=== PATIENT | female | born 1990 | race American Indian/Alaskan Native ===

== ENCOUNTER 2021-07-09 15:26 | Emergency (ER) | payer SELFPAY ==
--- NOTE | 2021-07-09 16:31 | Emergency Department Report ---
ED Female HPI - General Chief complaint: Vaginal Bleeding Stated complaint: WITH LIGHT BLEEDING Source: patient Mode of arrival: Ambulatory Limitations: No Limitations - History of Present Illness Initial comments: 30-year-old female presented to the ED with complaint of vaginal bleeding. Patient states that she is 8-week had a previous test done at the [place] 2 Para1 . Patient denies any abdominal pain. Patient denies any nausea vomiting or fever chills. Patient's last menstrual cycle was 05/06/2021. No acute distress noted no ill appearance noted. MD Complaint: vaginal bleeding -: This morning Severity scale (0 -10): 0 Are you Now?: Yes Last Menstrual Period: 05/06/21 EDC: 02/10/22 Associated Symptoms: denies other symptoms - Related Data Sexually active: Yes : 2 Para: 1 A: 0 Previous Rx's Medication Instructions Recorded Last Taken Type Acetaminophen/Codeine [Tylenol 1 tab PO Q6H PRN 3 Days #12 tab 07/09/21 Unknown Rx /Codeine # 3 tab] Allergies Allergy/AdvReac Type Severity Reaction Status Date / Time No Known Allergies Allergy Unverified 07/09/21 15:55 ED Review of Systems ROS: Stated complaint: WITH LIGHT BLEEDING Other details as noted in HPI Constitutional: denies: chills, fever Eyes: denies: eye pain, eye discharge, vision change ENT: denies: ear pain, throat pain Respiratory: denies: cough, shortness of breath, wheezing Cardiovascular: denies: chest pain, palpitations Endocrine: no symptoms reported Gastrointestinal: denies: abdominal pain, nausea, diarrhea Genitourinary: denies: urgency, dysuria, discharge Musculoskeletal: denies: back pain, joint swelling, arthralgia Skin: denies: rash, lesions Neurological: denies: headache, weakness, paresthesias Psychiatric: denies: anxiety, depression Hematological/Lymphatic: denies: easy bleeding, easy bruising ED Past Medical Hx - Medications Home Medications: Home Medications Medication Instructions Recorded Confirmed Last Taken Type Acetaminophen/Codeine [Tylenol 1 tab PO Q6H PRN 3 Days #12 tab 07/09/21 Unknown Rx /Codeine # 3 tab] ED Physical Exam - General Limitations: No Limitations General appearance: alert, in no apparent distress - Head Head exam: Present: atraumatic, normocephalic - Eye Eye exam: Present: normal appearance - ENT ENT exam: Present: mucous membranes moist - Neck Neck exam: Present: normal inspection - Respiratory Respiratory exam: Present: normal lung sounds bilaterally. Absent: respiratory distress - Cardiovascular Cardiovascular Exam: Present: regular rate, normal rhythm. Absent: systolic murmur, diastolic murmur, rubs, gallop - GI/Abdominal GI/Abdominal exam: Present: soft, normal bowel sounds - Speculum exam: Present: vaginal bleeding - Extremities Exam Extremities exam: Present: normal inspection - Back Exam Back exam: Present: normal inspection - Neurological Exam Neurological exam: Present: alert, oriented X3 - Psychiatric Psychiatric exam: Present: normal affect, normal mood - Skin Skin exam: Present: warm, dry, intact, normal color. Absent: rash ED Course Vital Signs 07/09/21 17:49 Temperature 100.0 F H Pulse Rate 94 H Respiratory 16 Rate Blood Pressure 125/74 [Right] O2 Sat by Pulse 99 Oximetry ED Medical Decision Making - Lab Data Result diagrams: 07/09/21 16:26 07/09/21 16:26 - Radiology Data [facility] [address] [place] [address] Ultrasound Report Signed Patient: DUC COLVIN MR#: [id number] : 1990 Acct:[id number] Age/Sex: 30 / F ADM Date: 07/09/21 Loc: ED Attending Dr: Ordering Physician: EMILIANO ROBERTS Date of Service: 07/09/21 Procedure(s): US OB transvaginal Accession Number(s): [id number] cc: EMILIANO ROBERTS ULTRASOUND OBSTETRIC REASON FOR EXAM: 8 weeks preg/vag bleeding TECHNIQUE: Transabdominal and transvaginal ultrasound was performed to evaluate a first trimester . COMPARISON: None available. FINDINGS: FINDINGS: The pole, yolk sac, and gestational sac are normal in appearance. [place]-rump length: 12.3 mm. This corresponds with a gestational age of 7 weeks 0 days. heart rate: None detected Perigestational hemorrhage: No evidence of perigestational hemorrhage on the provided images. MATERNAL FINDINGS: The uterus demonstrates an otherwise unremarkable sonographic appearance. 1.4 cm corpus luteum cyst in the right ovary. The left ovary demonstrates a normal sonographic appearance. Cul-de-sac: There is no free fluid. IMPRESSION: Intrauterine measuring 12 mm without detectable heart tones. Ultrasound findings are diagnostic of failure. Signer Name: Remi Lindo MD Signed: 07/09/2021 5:23 PM Workstation Name: [id number] Transcribed By: GERI Dictated By: REMI LINDO MD Electronically Authenticated By: REMI LINDO MD Signed Date/Time: 07/09/211722 DD/ 19 TD/TT: - Medical Decision Making 30-year-old female presented to the ED with complaint of vaginal bleeding. Patient states that she is 8-week had a previous test done at the [place] 2 Para1 . Patient denies any abdominal pain. Patient denies any nausea vomiting or fever chills. Patient's last menstrual cycle was 05/06/2021. No acute distress noted no ill appearance noted. Consult with Rosemarie Beckman OB patient to follow-up with my [facility] on Sunday. Discharge stable. I have spoken with the patient and/or caregiver. I have explained the patient condition, diagnosis and treatment plan based on information available to me at this time. I have answered the patient and/caregiver questions and addressed any concerns. The patient and/or caregiver have has good an understanding of the patient diagnosed condition and treatment plan as can be expected at this point. The vital signs have been stable. The patient condition is stable and appropriate for discharge from the emergency department. The patient and caregiver has been given detailed instruction in a written format and expressed understanding of discharge instruction. The patient/or caregiver are aware that any significant change in condition or worsening of symptoms should prompt an immediate return to the this or the closest emergency department or call to 1 Critical care attestation.: If time is entered above; I have spent that time in minutes in the direct care of this critically ill patient, excluding procedure time. ED Disposition Clinical Impression: Miscarriage, threatened, early Disposition: HOME / SELF CARE / HOMELESS Is pt being admited?: No Does the pt Need Aspirin: No Condition: Stable Instructions: Threatened Miscarriage, Vaginal Bleeding During , First Trimester, Threatened Miscarriage, [id number] Additional Instructions: Return to ED for worsening symptoms Call My [facility] on Sunday [phone] to schedule 48 appointment inform of your visit at [facility] plenty of fluids May experience abdominal cramping and and bleeding Prescriptions: Acetaminophen/Codeine [Tylenol /Codeine # 3 tab] 1 tab PO Q6H PRN 3 Days #12 tab PRN Reason: Pain, Moderate (4-6) Referrals: PRIMARY CARE, [Primary Care Provider] - 3-5 Days [facility] [Provider Group] - 3-5 Days Forms: Work/School Release Form(ED)
[2021-07-09 16:41] LABS: Basophils % (Auto) 0.6 % (0.0-1.8); Eosinophils % (Auto) 0.4 % (0.0-4.3); Hematocrit 40.5 % (30.3-42.9); Hemoglobin 13.1 gm/dl (10.1-14.3); Lymphocytes # (Auto) 0.5 K/mm3 (1.2-5.4); Lymphocytes % (Auto) 6.5 % (13.4-35.0); Mean Corpuscular HGB Conc 32 % (30-34); Mean Corpuscular Volume 89 fl (79-97); Monocytes # (Auto) 0.9 K/mm3 (0.0-0.8); Monocytes % (Auto) 12.6 % (0.0-7.3); Platelet Count 362 K/mm3 (140-440); Red Blood Count 4.57 M/mm3 (3.65-5.03)
[2021-07-09 17:03] LABS: Alanine Aminotransferase 15 units/L (7-56); Albumin 4.1 g/dL (3.9-5); BUN/Creatinine Ratio 12; Blood Urea Nitrogen 12 mg/dL (7-17); Calcium 8.8 mg/dL (8.4-10.2); Hemolysis Index 4
[2021-07-09 17:07] LABS: Bilirubin,Urine NEG (Negative); Blood,Urine LG (Negative); Color,Urine Amber (Yellow); Mucus,Urine 1+ /HPF; Urobilinogen,Urine < 2.0 mg/dL (<2.0)
--- NOTE | 2021-07-09 17:27 | Ultrasound Report ---
ULTRASOUND OBSTETRIC REASON FOR EXAM: 8 weeks preg/vag bleeding TECHNIQUE: Transabdominal and transvaginal ultrasound was performed to evaluate a first trimester pre gnancy. COMPARISON: None available. FINDINGS: FINDINGS: The pole, yolk sac, and gestational sac are normal in appearance. [place]-rump length: 12.3 mm. This corresponds with a gestational age of 7 weeks 0 days. heart rate: None detected Perigestational hemorrhage: No evidence of perigestational hemorrhage on the provided images. MATERNAL FINDINGS: The uterus demonstrates an otherwise unremarkable sonographic appearance. 1.4 cm corpus luteum cyst in the right ovary. The left ovary demonstrates a normal sonographic appearance. Cul-de-sac: There is no free fluid. IMPRESSION: Intrauterine measuring 12 mm without detectable heart tones. Ultrasound findings are diagnostic of failure. Signer Name: Levy Lindo MD Signed: 07/09/2021 5:23 PM Workstation Name: [id number]
[2021-07-09 17:50] VITALS: BP 125/74
[2021-07-09] MEDS ORDERED: ACETAMINOPHEN 500 MG TAB PO ONE (17:52)
== END 2021-07-09 19:00 | disposition home or self-care (01) ==
LOC: ED 15:26
DX: O20.0 Threatened abortion (principal); Z79.899 Other long term (current) drug therapy; Z3A.08 8 weeks gestation of pregnancy
CPT/HCPCS: 36415; 76817; 80053; 81001; 84702; 85025; 86900; 86901; 87086; 99284

== ENCOUNTER → 2021-07-12 | Emergency (ER) | payer SELFPAY ==
[2021-07-12 14:27] VITALS: BP 132/98
== END ==
LOC: ED 12:56
DX: R58 Hemorrhage, not elsewhere classified (principal); R25.2 Cramp and spasm; Z53.21 Procedure and treatment not carried out due to patient leaving prior to being seen by health care provider